=== PATIENT | female | born 1995 | race African-American/Black ===

== ENCOUNTER 2023-11-09 22:01 | Emergency (ER) | payer SELFPAY ==
[~2023-11-09] VITALS: Ht 149.9 cm; Wt 51.0 kg
[~2023-11-09 22:01] MED LIST: LEVA0.31
[2023-11-09 22:09] VITALS: BP 131/93; PULSE 88; RESP 18; TEMP 98.6; O2SAT 96
[2023-11-09] MEDS ORDERED: BACITRACIN ZINC OINT UDPKT TOP ONE (23:30)
[2023-11-09] MEDS ORDERED: TETANUS, DIPHTHERIA, PERTUSSIS VAC/PF 0.5ML (>10YR OLD) IM ONE (23:30)
[2023-11-09] MEDS ORDERED: LIDOCAINE HCL/PF 1% 10 MG/ML 5ML VIAL INFIL ONE (23:30)
== END 2023-11-10 04:39 | disposition left against medical advice (07) ==
LOC: ER 22:01
DX: S61.411A Laceration without foreign body of right hand, initial encounter (principal); S09.90XA Unspecified injury of head, initial encounter; X58.XXXA Exposure to other specified factors, initial encounter; Y93.89 Activity, other specified; Y92.89 Other specified places as the place of occurrence of the external cause; Y99.8 Other external cause status
CPT/HCPCS: 99283; Z7610 ×2